=== PATIENT | male | born 1960 | race Caucasian/White ===

== ENCOUNTER 2017-08-09 11:07 | Day surgery (SDC) | payer BC ==
[~2017-08-09 11:07] MED LIST: ACETAMINOPHEN 500 MG TABLET PO PRN; HYDROmorphone HCL 2 MG/ML VIAL IV PRN; MAG HYDROX/ALUMINUM HYD/SIMETH 30 ML UDC PO PRN; MAGNESIUM HYDROXIDE 30 ML UDC PO PRN; ONDANSETRON HCL/PF 2 MG/ML VIAL IV PRN; PROMETHAZINE HCL 25 MG in DEXTROSE 5 % IN WATER 50 ML IV PRN; RINGER'S SOLUTION,LACTATED 1,000 ML IV PRN; ROPIVACAINE HCL/PF 40 MG in NORMAL SALINE 16 ML IJ PRN; ZOLPIDEM TARTRATE 5 MG TABLET PO PRN; ceFAZolin SODIUM 1 GM VIAL IV PRN; diphenhydrAMINE HCL 50 MG/ML VIAL IV PRN; oxyCODONE HCL/ACETAMINOPHEN 1 TAB TABLET PO PRN
[2017-08-09] MEDS ORDERED: BUPIVACAINE HCL/EPINEPHRINE 50 ML VIAL IJ ONE (12:20)
--- NOTE | 2017-08-09 12:50 | POSTOP NO ---
Date of Surgery: 08/09/17 Patient Tolerated the Procedure: Well Post Operative Diagnosis/Procedures: Denture Laboratory Technician: Rufus Nguyễn PA-C Post-operative Diagnosis: Right medial meniscus tear with loose bodies Finding: Above Procedure: Right knee arthroscopy partial medial meniscectomy with removal of loose bodies Estimated Blood Loss: Minimal Specimens: None
--- NOTE | 2017-08-09 12:53 | OR ---
Operative Report - Dictated Report Narrative: Date: 08/09/2017 Physician: Jose Lewis M.D. Hogshead Hand: Rufus Nguyễn PA-C Preoperative diagnosis: Right Knee medial meniscus tear Postoperative diagnosis: Right Knee medial meniscus tear , loose bodies Procedure: Right knee arthroscopy with partial medial meniscectomy, removal of loose bodies Anesthesia: General Plus local Complications: None Estimated blood loss: Minimal Tourniquet time: None Specimens: None Retained implants: None Drains: None Indications: Mr. Spence Is a 56 year-old gentleman who has been followed in my clinic with complaints of knee pain consistent with suspected medial joint pathology. Physical exam and diagnostic imaging were consistent with these complaints and concern for medial meniscus pathology. Conservative measures have failed including, but not limited to, passage of time, activity modification, medications, and injections. The risks, benefits, and alternatives were discussed in clinic. The risks being , bleeding, infection, blood clots, nerve, tendon, ligament, blood vessel injury, persistent pain, arthrosis, need for additional procedures, and persistent symptoms. Consent was obtained in the clinic. Procedure: After marking the correct extremity in the preoperative holding area, a timeout was performed in the operating room. IV antibiotics consisting of and set were administered prior to the procedure. A well-padded tourniquet was applied to the operative upper thigh. The leg was prepped and draped in a standard sterile fashion. 0.5% Marcaine with epinephrine was infused into the projected portal sites as well as the intra-articular space. A nimo incision was made for inferior lateral portal. A blunt trocar and cannula was introduced into the knee. The suprapatellar pouch revealed small chondral loose bodies. The medial patella facet showed grade 2 change. The lateral patella facet showed grade 2 change. The trochlea showed grade 1 change. The medial gutter revealed small chondral loose bodies. The medial joint space was then entered utilizing a lateral post and valgus stress. A spinal needle was utilized for guidance into placement of an anterior medial portal. This was placed just superior to the medial meniscus ensuring that we could reach the posterior aspect of the medial joint space. A nimo incision was made in the site, and the probe was introduced to the knee. The medial joint space was examined, and the medial femoral condyle showed a focal area of grade 4 change approximately 1 cm as well as the remaining distal femur and grade 3 change. The medial tibial plateau showed grade 4 change in the most medial aspect that was approximately 2 x 3 cm. The medial meniscus had a complex tear at the junction of the posterior and middle thirds which extended close to the root and was flipping in and out. The notch was then examined, and the ACL was noted to be intact. The PCL was noted to be intact. The lateral joint space was then examined using a varus force in the figure 4 position. Lateral femoral condyle showed no arthrosis. Lateral tibial plateau showed grade 1 change. The lateral meniscus showed no appreciable tear. The lateral gutter showed small chondral loose bodies. Having identified the surgical pathology, a series of biters and regine were utilized in order to debride the posterior one half of the medial meniscus to a depth of approximately 50%. The root was intact. The anterior meniscus was unremarkable. The shaver was also utilized in order to remove all the small chondral loose bodies throughout the knee. Once it was felt that we adequately addressed the pathology, the knee was thoroughly irrigated. The fluid was evacuated ensuring that we have removed all meniscal, chondral, and any other loose bodies. A final evaluation of the joint showed no additional pathology. The fluid was then evacuated of the knee, and the trocar and camera were removed from the joint. The wounds were closed with interrupted nylon after placing 20 mL of 0.2% ropivacaine into the joint. Dressings consisting of Xeroform, 4 x 4, ABD, soft roll, and an Jose were applied. All sponge, needle, blade, and instrument counts were correct prior to closing the wounds. The patient was awoken and transferred to the postanesthesia care unit in stable condition.
[2017-08-09 14:34] VITALS: BP 141/78
[2017-08-09] MEDS ORDERED: SENNOSIDES/DOCUSATE SODIUM 1 TAB TABLET PO SCH (21:00)
== END 2017-08-09 11:08 | disposition home or self-care (01) ==
LOC: AMB 11:07
PROVIDERS: ATTEND Orthopaedic Surgery
PROC: 0SBC4ZZ Excision of Right Knee Joint, Percutaneous Endoscopic Approach (ICD-10-PCS; principal; 2017-08-09)
DX: M23.221 Derangement of posterior horn of medial meniscus due to old tear or injury, right knee (principal); E11.9 Type 2 diabetes mellitus without complications; I10 Essential (primary) hypertension; E78.5 Hyperlipidemia, unspecified; G47.33 Obstructive sleep apnea (adult) (pediatric); I34.0 Nonrheumatic mitral (valve) insufficiency; G25.81 Restless legs syndrome; Z72.0 Tobacco use; Z68.36 Body mass index [BMI] 36.0-36.9, adult

== ENCOUNTER 2018-07-13 06:12 | Inpatient (IN) ==
[~2018-07-13 06:12] MED LIST changes: -ACETAMINOPHEN 500 MG TABLET PO PRN; -HYDROmorphone HCL 2 MG/ML VIAL IV PRN; -MAG HYDROX/ALUMINUM HYD/SIMETH 30 ML UDC PO PRN; -MAGNESIUM HYDROXIDE 30 ML UDC PO PRN; +MORPHINE SULFATE 15 MG TABLET.SA PO PRN; -ONDANSETRON HCL/PF 2 MG/ML VIAL IV PRN; -PROMETHAZINE HCL 25 MG in DEXTROSE 5 % IN WATER 50 ML IV PRN; -RINGER'S SOLUTION,LACTATED 1,000 ML IV PRN; +ROPIVACAINE HCL/PF 100 MG, EPINEPHrine 0.2 MG, KETOROLAC TROMETHAMINE 30 MG in NORMAL S... IJ PRN; -ROPIVACAINE HCL/PF 40 MG in NORMAL SALINE 16 ML IJ PRN; +TRANEXAMIC ACID 1,000 MG in NORMAL SALINE 100 ML IV PRN; -ZOLPIDEM TARTRATE 5 MG TABLET PO PRN; -diphenhydrAMINE HCL 50 MG/ML VIAL IV PRN; -oxyCODONE HCL/ACETAMINOPHEN 1 TAB TABLET PO PRN
--- NOTE | 2018-07-13 07:13 | ANES ---
Anesthesia Pre Procedure Eval Vitals/Labs: Last Vital Signs Temp 36.6 C 07/13/18 06:30 Pulse 82 07/13/18 06:30 Resp 18 07/13/18 06:30 BP 155/76 H 07/13/18 06:30 Pulse Ox 98 07/13/18 06:30 HOME MEDICATIONS Aspirin [Aspirin Enteric Coated] 81 mg PO DAILY 08/01/17 [Last Taken 07/08/18] Fenofibrate 160 mg PO DAILY 08/01/17 [Last Taken 07/12/18] Glucagon,Human Recombinant [Glucagen] 1 mg IJ ONCE PRN 08/01/17 [Last Taken Unknown] Omeprazole 20 mg PO DAILY 08/01/17 [Last Taken 07/12/18] clonazePAM [Klonopin] 0.5 mg PO DAILY PRN 08/01/17 [Last Taken 07/12/18] glipiZIDE [Glucotrol] 10 mg PO BIDAC 08/01/17 [Last Taken 07/12/18] tiZANidine HCL [Zanaflex] 2 mg PO DAILY PRN 08/01/17 [Last Taken Unknown] calcipotriene 0.005 % topical cream 1 applic TP BID PRN 04/25/18 [Last Taken Unknown] metformin 1,000 mg tablet 1,000 mg PO BIDWM tab 04/25/18 [Last Taken 07/12/18] simvastatin 80 mg tablet 80 mg PO DAILY tab 04/25/18 [Last Taken 07/12/18] desonide 0.05 % topical ointment 1 applic TP BID PRN 06/28/18 [Last Taken Unknown] insulin detemir (U-100) 100 unit/mL (3 mL) subcutaneous pen 58 unit SUBCUT HS ml 06/28/18 [Last Taken 07/12/18] naproxen 250 mg tablet 250 mg PO QAM PRN 06/28/18 [Last Taken 06/29/18] ropinirole 0.5 mg tablet 1 tab PO DAILY #90 tab 06/28/18 [Last Taken 07/12/18] tramadol 50 mg tablet See Rx Instructions PO .COMPLEX #60 tab 06/28/18 [Last Taken 07/12/18] Losartan Potassium 100 mg PO DAILY 07/11/18 [Last Taken 07/13/18] Allergies/Adverse Reactions: Allergies Allergy/AdvReac Type Severity Reaction Status Date / Time morphine AdvReac Mild Headache Verified 07/13/18 06:26 - Planned Procedure Planned Procedure: Right Arthroplasty Total Knee Medication List Reviewed:: Yes Medical History (Last Reviewed 07/13/18 @ 07:04 by Daniel Aparicio CRNA) Headache Onset Date: 02/14/12 Hyperlipidemia Onset Date: 2004 Hypertension Onset Date: 2004 Left buttock pain Onset Date: 12/11/14winter Lung nodule Onset Date: Unknown Medial meniscus tear Onset Date: 08/09/17 partial Mitral regurgitation Onset Date: 10/13/16 trivial mitral regurgitation, EF 65-70%, normal Echo, cardiovascular medicine, [place], Dr. Khan 10/07/16 NASREEN (obstructive sleep apnea) Onset Date: 02/14/12 Psoriasis Onset Date: 09/08/16 RLS (restless legs syndrome) Onset Date: 04/27/17 12/11/2014, 04/27/17 Rash of face Onset Date: 09/08/16 Rhinitis, allergic Onset Date: 09/08/16 Right knee DJD Onset Date: Unknown Right knee pain Onset Date: 03/07/17 Type 2 diabetes mellitus Onset Date: 2008 Surgical History (Last Reviewed 07/13/18 @ 07:09 by Daniel Aparicio CRNA) History of appendectomy Onset Date: 1997 History of arthroscopic knee surgery Onset Date: 08/09/17 right- see op report PMM, rem loose bodies Dr. Sultana right- arthroscopy ACL tear but not repaired, Dr. Aguilar- 1989' History of carpal tunnel release Onset Date: 2000 History of cholecystectomy Onset Date: Unknown feb or 2013 History of colonoscopy Onset Date: 2009 [facility] repeat 10 years History of eye surgery Onset Date: 1964 excision skin lesion Onset Date: Unknown hemorrhoid surgery Onset Date: Unknown Family History (Last Reviewed 07/13/18 @ 07:09 by Daniel Aparicio CRNA) Mother Medical history unknown Brother Alive and well Sister Medical history unknown Father , age 72 Cancer lung - Family Anesthesia History Family History:: no untoward family reactions to anesthesia, no familial bleeding tendencies, no family history of clotting disorders, no family history of premature - Airway/Neck/Teeth Within Normal Limits:: Yes Teeth Condition: intact Neck Exam: full range of motion Mallampatti Score: 3 Thyromental (T-M) distance: > 6 cm Mandibulo Hyoid distance: > 3 cm - Respiratory Smoking Status: Never smoker Sleep Apnea currently treated: Yes Sleep Apnea by current assessment: Yes Discussed Risks/Treatment of NASREEN: Yes - Cardiovascular Cardiac History: hyperlipidemia Tolerate Activity: Fair Heart Sounds: S1 & S2, Regular - Anesthesia Assessment and Plan ASA Class: PS, III Anesthesia Type Plan: Block - For post op pain relief, Spinal
[2018-07-13] MEDS: RINGER'S SOLUTION,LACTATED 1,000 ML IV PRN ×4 (07:24→21:58)
[2018-07-13] MEDS ORDERED: MAGNESIUM HYDROXIDE 30 ML UDC PO PRN (09:33)
[2018-07-13] MEDS ORDERED: MAG HYDROX/ALUMINUM HYD/SIMETH 30 ML UDC PO PRN (09:33)
[2018-07-13] MEDS ORDERED: ACETAMINOPHEN 500 MG TABLET PO PRN (09:33)
[2018-07-13] MEDS ORDERED: ZOLPIDEM TARTRATE 5 MG TABLET PO PRN (09:33)
[2018-07-13] MEDS ORDERED: ONDANSETRON HCL/PF 2 MG/ML VIAL IV PRN (09:33)
[2018-07-13] MEDS ORDERED: HYDROmorphone HCL 1 MG/ML DISP.SYRIN IV PRN (09:33)
[2018-07-13] MEDS ORDERED: diphenhydrAMINE HCL 50 MG/ML VIAL IV PRN (09:33)
[2018-07-13] MEDS ORDERED: tiZANidine HCL 4 MG TABLET PO PRN (09:34)
[2018-07-13] MEDS ORDERED: CALCIPOTRIENE TP PRN (09:34)
[2018-07-13] MEDS ORDERED: GLUCAGON,HUMAN RECOMBINANT 1 MG VIAL IJ PRN (09:34)
[2018-07-13] MEDS ORDERED: clonazePAM 0.5 MG TABLET PO PRN (09:34)
[2018-07-13] MEDS ORDERED: DESONIDE APPL TP PRN (09:34)
--- NOTE | 2018-07-13 09:37 | OR ---
Operative Report - Dictated Report Narrative: Date: 07/13/2018 Preoperative diagnosis: Right Knee degenerative joint disease. Postoperative diagnosis: Right Knee degenerative joint disease. Procedure: Right Total knee arthroplasty. Surgeon: Jose Lewis M.D. Certified Low Vision Therapist: Rufus Nguyễn PA-C (provided and essential set of skilled, educated hands that assisted with transfer, positioning, prepping, draping, manipulation, retraction, placement of jigs, injection, insertion of implants, irrigation, closure wounds, and dressings all of which could not be performed by the available surgical crew) Anesthesia: Spinal with regional block and local periarticular joint injection. Complications: None Specimens: Bone for disposal. Estimated blood loss: Minimal. Tourniquet time: 80 Minutes at 325 millimeters of mercury. Retained implants: Depuy Attune size 7 right lugged cemented posterior stabilized femoral compo nent. Size 7 fixed-bearing cemented tibial platform. 7 by 8 millimeter posterior stabilized cross-linked tibial insert. 41 millimeter medialized patella button. Indications: Mr. Spence is a 57-year-old gentleman who has had long-standing right knee pain and arthrosis. This patient was followed in my clinic for period of time with significant complaints of right knee pain consistent with a rthritic changes. He had failed conservative measures including, but not limited to, activity modification, passage of time, medications, and other conservative measures. Patient wished to proceed with surgical treatment. The risks, benefits, and alternatives were discussed in clinic. The risks of , blood clots, bleeding, infection, nerve/tendon blood vessel/ injury, malposition of components, intraoperative fracture, postoperative limited range of motion, persistent pain, failure of components, and need for additional procedures. Patient wished to proceed consent was obtained after answering all questions. Procedure: After marking the correct extremity on the floor, the patient was taken to the operating room. A timeout was performed. IV antibiotics consisting of Ancef were administered prior to the procedure. A regional followed by spinal anesthetic was induced by anesthesia, per my request, on the operative table with all bony prominences well-padded. Núñez catheter was placed, and a bump was placed under the operative side buttock. SCDs and GILDARDO hose were utilized on the nonoperative leg. A well-padded tourniquet was applied to the operative thigh. The operative leg was then pre-scrubbed with alcohol, prepped, and draped in a standard sterile fashion. After exsanguinating the extremity with an Esmarch bandage, the tourniquet was inflated. After marking out the anterior knee for standard incision centered over the patella, the skin was incised and dissected down to the joint retinaculum. The joint retinaculum was marked out as well as the horizontal axis of the patella, and a standard medial parapatellar arthrotomy was then made. The most proximal aspect of the quadriceps tendon and the patella tendon insertion were protected from release. A partial synovectomy was performed as well as a resection of the infrapatellar fat pad. The distal femoral fat pad proximal to the trochlea was also resected using cautery. The soft tissues were elevated off the medial aspect of the proximal tibia using a Corrales elevator ensuring that we did not transect the medial collateral ligament. Upon initial evaluation range of motion was approximately 0 degrees to 130 degrees of flexion. There were signs of advanced arthrosis in the medial and lateral greater than patellofemoral joint spaces. There were large marginal osteophytes which were removed with a rongeur. The knee was hyperflexed and the patella was tucked laterally. Protecting the surrounding soft tissues with Homans, an entry drill was placed down the femoral canal using Whitesides line for guidance into the entry point. The intramedullary femoral alignment pia was utilized in order to cut the distal femur in 5 degrees of valgus resecting 10 millimeters of bone. Next the distal femur was sized to a size 7. A posterior referencing guide was utilized to place the distal femoral cutting block in 3 degrees of external rotation. This was pinned into place. The rotation was confirmed both visually and based on anatomic landmarks. The 4 in 1 cutting jig of the appropriate size was utilized in order to make all bony cuts. The angle wing was used to ensure no notching. Retractors were utilized in order to protect surrounding soft tissues. This cut did not result in any excessive notching. We then cut the box centered over the distal femur. This allowed for resection of the anterior and posterior cruciate ligaments. I then turned my attention to the preparation of the tibia. Using an extra medullary tibial alignment pia, 3 millimeters of bone was resected off the medial articular surface. This was made perpendicular to the mechanical axis of the joint with the alignment pia centered over the ankle mortise. The alignment pia was checked and was noted to be parallel to the mechanical axis, centered over the medial one third of the tibial tubercle, paralleling the anterior surface of the tibia. We then turned our attention to the remaining meniscus and soft tissues. These were removed while protecting the surrounding ligaments and soft tissues. The marginal osteophytes off the anterior, posterior, medial, lateral aspects of the femur and tibia were removed. The tibia was sized out to a size 7. Next the tibia was drilled and punched in an externally rotated position. Next the trial femur and a series of tibial inserts were utilized in order to allow for full extension and maximal flexion. It was found that a 8 millimeter insert gave the best range of motion and stability at multiple flexion points as well as at full extension there was less than 2 mm of gapping both medially and laterally. There is minimal anterior translation with the knee at 90 degrees of flexion and no signs of being able to dislocate the knee. The patella was then prepared. The initial thickness was 26 millimeters. This was reamed down to 16 millimeters parallel to the anterior surface of the patella. It was sized out to a size 41 medialized patella button. This was then drilled and trialed. Without any medial restraint the patella tracked appropriately and did not sublux or dislocate. At this point, it was felt these were the appropriate sized implants, and all trials were removed. The standard periarticular joint injection consisting of ropivacaine, Toradol, and epinephrine were injected into the periarticular joint tissues. The bony surfaces were thoroughly irrigated with a pulsatile-suction saline irrigation device. A bone plug from the prior resected anterior chamfer cut was placed into the drill hole at the distal femur. The bony surfaces were then dried in preparation for placement of the implants. The cement was vacuum mixed per the home health care respiratory therapist's instructions. The cement was placed on the dry bony surfaces and posterior aspect of the implants. The implants were impacted into place, removing all extruded cement. At this point anesthesia administered tranexamic acid per protocol intravenously. The knee was placed in extension with axial loading with the trial insert while the cement cured. Once the cement cured, all remaining extruded cement was removed. The knee was placed through a range of motion with the trial insert to ensure appropriate range of motion and stability. Final range of motion was approximately 0 to 130 degrees. The knee was again thoroughly irrigated with pulsatile saline lavage. The final polyethylene insert was then impacted into place ensuring no retained soft tissues. The remaining periarticular joint injection was injected. A medium Hemovac drain was placed exiting superior laterally. The knee was then placed over a triangle and the arthrotomy was closed with interrupted #1 Vicryl after thoroughly irrigating the joint. The deep and subcutaneous tissues were closed with interrupted 0 and 3-0 Vicryl respectively. Skin was closed with a running subcutaneous 3-0 Monocryl and Prineo Dermabond dressing. 4 x 4's, Sof-Rol, and a full leg Jose wrap were applied. All sponge, needle, blade, and instrument counts were correct prior to closing the wounds. Postoperative condition: The patient was awoken and transferred to the postanesthesia care unit in stable condition. Plan is to be admitted to the inpatient medical/surgical floor postoperatively for 24 hours of IV antibiotics, physical therapy, occupational therapy, and medical comanagement. Patient will be weightbearing as tolerated with range of motion as tolerated. DVT prophylaxis will be with SCDs, GILDARDO hose, and pharmacological anticoagulation. Anticipated hospital stay is approximately 1-3 days.
--- NOTE | 2018-07-13 09:52 | ANES ---
Anesthesia Procedure Note Procedure Note: ANESTHESIA PROCEDURE NOTE Date of Procedure: 07/13/2018 Time of procedure: 7:45 AM. Performed by: Daniel Aparicio CRNA, MSN [employer] Prof[employer]als: Lisa Luevano RN. Preprocedure diagnosis: Post right total knee arthroplasty. Post procedure diagnosis: Same. Procedure: Right Adductor Canal Block. Indications: Post great total knee arthroplasty pain relief. Findings: See below. Details of the procedure: The patient was brought to OR for and placed in supine position. The patient's right femoral area to the knee was prepped with chlorhexidine and using ultrasound guidance the right femoral artery wasidentified at approximately the proximal one third femur. Under ultrasound guidance the saphenous nerve was approached with visualization of a 4 inch shielded block needle approaching the adductor canal just under the sartorius muscle. Once saphenous nerve was identified with proximity to the needle tip, the saphenous nerve was surrounded with 20 mL bupivacaine 0.25% with 1-200,000 epinephrine. Please see radiology/ultrasound report for details and retained images of the procedure. EBL: 0 Fluids: N/A. Specimen: N/A. Post procedure condition: The patient tolerated the procedure well. No complications were noted. Thank you for this consultation. Daniel Aparicio CRNA, MSN
--- NOTE | 2018-07-13 09:53 | ANES ---
Post Anesthesia Discharge - Transfer of Care Transfer of Care handoff given to nurse: Yes - Discharge from PACU Discharge from PACU when meets criteria: Yes - Comfortable in PACU
[2018-07-13] MEDS ORDERED: DESONIDE 0.05% TP PRN (10:15)
[2018-07-13] MEDS: ceFAZolin SODIUM 1 GM in DEXTROSE 5 % IN WATER 100 ML IV SCH ×6 (10:42→22:42)
[2018-07-13] MEDS: KETOROLAC TROMETHAMINE 15 MG/ML VIAL IV SCH ×3 (10:42→22:43)
--- NOTE | 2018-07-13 11:38 | ANES ---
Post Anesthesia Assessment - Vital Signs Vitals: Last Vital Signs Temp 36.7 C 07/13/18 09:50 Pulse 71 07/13/18 10:10 Resp 12 07/13/18 10:10 BP 125/66 07/13/18 10:10 Pulse Ox 98 07/13/18 10:10 Airway Patency: Normal - Mental Status Level Of Consciousness: Awake, Alert, Appropriate - Pain Level Pain Score: 0 - N/V Assessment Nausea/Vomiting Presence: None Dehydration:: No
[2018-07-13] MEDS: oxyCODONE HCL/ACETAMINOPHEN 1 TAB TABLET PO PRN ×3 (14:22→22:50)
[2018-07-13] MEDS: glipiZIDE 10 MG TABLET PO SCH (16:44)
[2018-07-13] MEDS ORDERED: rOPINIRole HCL 0.5 MG TABLET PO SCH (17:30)
[2018-07-13] MEDS: MORPHINE SULFATE 15 MG TABLET.SA PO SCH (20:18)
[2018-07-13] MEDS ORDERED: SENNOSIDES/DOCUSATE SODIUM 1 TAB TABLET PO SCH (21:00)
[2018-07-13] MEDS ORDERED: SIMVASTATIN 40 MG TABLET PO SCH (21:00)
[2018-07-13] MEDS ORDERED: INSULIN DETEMIR 100 UNITS/ML VIAL SC SCH (21:00)
[2018-07-14] MEDS: oxyCODONE HCL/ACETAMINOPHEN 1 TAB TABLET PO PRN ×3 (03:18→13:02)
[2018-07-14] MEDS: KETOROLAC TROMETHAMINE 15 MG/ML VIAL IV SCH ×2 (05:09→10:30)
[2018-07-14 06:22] LABS: Hemoglobin 12.1 gm/dL (13.5-18.0); Mean Cell Volume 89.5 fl (78-100); Mean Corpuscular Hemoglobin 30.9 pg (27-31); Mean Corpuscular Hgb Conc 34.6 g/dl (32-36); Mean Platelet Volume 9.7 fl (8-11.3); Platelet Count 188 K/mm3 (150-450); Red Blood Count 3.91 M/mm3 (4.7-6.0); Red Cell Distribution Width 12.3 % (11.5-14.0); White Blood Count 7.2 K/mm3 (4.0-10.5)
[2018-07-14 06:35] LABS: Anion Gap 10.8 mmol/L (6.8-13.8); BUN/Creatinine Ratio 10.7 (9.0-21.6); Calcium * 8.9 mg/dL (7.9-10.9); Carbon Dioxide 26.4 mmol/L (24-32.6); Estimated Creat Clear 72.2; Potassium 4.2 mmol/L (3.4-4.6)
[2018-07-14] MEDS: glipiZIDE 10 MG TABLET PO SCH (06:35)
[2018-07-14] MEDS ORDERED: PANTOPRAZOLE SODIUM 20 MG TABLET.DR PO SCH (07:00)
[2018-07-14] MEDS ORDERED: ENOXAPARIN SODIUM 40 MG/0.4 ML SYRG SC SCH (08:33)
[2018-07-14] MEDS ORDERED: LOSARTAN POTASSIUM 50 MG TABLET PO SCH (09:00)
[2018-07-14] MEDS ORDERED: FENOFIBRATE,MICRONIZED 134 MG CAPSULE PO SCH (09:00)
[2018-07-14] MEDS: MORPHINE SULFATE 15 MG TABLET.SA PO SCH (09:26)
--- NOTE | 2018-07-14 10:31 | DS ---
(1) DM type 2 (diabetes mellitus, type 2) Problem: Chronic Qualifiers: Diabetes mellitus retirement insulin use: with retirement use (2) NASREEN (obstructive sleep apnea) Problem: Chronic (3) HTN (hypertension) Problem: Chronic (4) Hyperlipemia Problem: Chronic (5) RLS (restless legs syndrome) Problem: Chronic (6) Status post total right knee replacement Problem: Acute (7) Acute blood loss anemia Problem: Acute (8) GERD (gastroesophageal reflux disease) Problem: Chronic (9) Psoriasis Problem: Chronic Description of Stay: Mr. Spence was admitted to the floor after undergoing right total knee arthroplasty. Tolerated this well. Was admitted to the floor postoperatively for 24 hours of IV antibiotics, pain control, medical comanagement, and occupa tional and physical therapy. OT and PT were consulted to assist with activities of daily living and ambulation. Was made weightbearing as tolerated with range of motion as tolerated. Pain was initially controlled with IV regimen. This was transitioned to oral once tolerating a by mouth intake. Was resumed on home diet and medications. Had a Núñez catheter inserted and the operating room whic h was discontinued on postoperative day 1. A drain was placed intraoperatively into the knee which was discontinued on postoperative day 1. Lovenox SCD and GILDARDO hose were utilized for DVT prophylaxis. Vital signs remained stable to the hospital course. Serial labs were obtained which showed a final hemoglobin of 12.1 grams. BMP was reviewed and was stable. Physical examination throughout the hospital course showed an extremity that had sensation that was intact to light touch, palpable pulses, a benign wound, motor intact to the toes, ankle, and knee. Knee range of motion was approximately 5 degrees to 60 degrees. Once an oral pain regimen was tolerated and physical therapy goals were met, it was felt that they were stable for discharge to home. Instructions: Continue with weightbearing as tolerated and range of motion as tolerated. It is okay to shower and get the wound wet as long as there is no drainage from the wound. Do not bathe or soak the wound. If there is any drainage from the wound keep the wound clean and dry and cover with dry gauze and tape. Change every 2- 3 days as needed if there is any drainage. Cover wound while showering if there is any drainage. Continue with physical therapy. Resume home diet. Report any fever over 101.5 Fahrenheit, uncontrolled pain, increased drainage, foul odor of drainage, new or increased calf pain or shortness of breath, or any other significant complaints. A 325mg dialy aspirin will be started after finishing anticoagulation if not allergic. Continue with GILDARDO hose on the operative extremity until instructed otherwise. No driving until instructed otherwise. Follow up in approximately 10-14 days. Procedures Performed: see notes below List Procedures: Right total knee arthroplasty Results and Findings: Lab Pending Results 07/14/18 06:15: WBC 7.2, RBC 3.91 L, Hgb 12.1 L, Hct 35.0 L, MCV 89.5, MCH 30.9, MCHC 34.6, RDW 12.3, Plt Count 188, MPV 9.7 07/14/18 06:15: Sodium 139, Plasma Sodium 140, Potassium 4.2, Chloride 106, Carbon Dioxide 26.4, Anion Gap 10.8, BUN 13, Creatinine 1.21, Est GFR (Non-Af Amer) 65, BUN/Creatinine Ratio 10.7, Random Glucose 182 H, Calcium 8.9 Discharge Location: Home Disposition: Home self-care Condition: Good Discharge Activity: Activity as tolerated, Weight bearing Discharge Diet: Consistent carbs Referrals: Álvaro Cameron MD [Primary Care Provider] - Additional Patient Instructions (free text): Follow up Physical Therapy appointment at [facility] outpatient rehab on Jul.16 at 2:30pm. Please fax order and demographics to [facility] rehab to fax # [phone]. Follow up Orhopedic Dr Lewis appointment on at 1:00pm. Prescriptions (Any new or edited meds): Enoxaparin Sodium [Lovenox] 40 mg SC Q24H #7 disp.syrin Morphine Sulfate [Ms Contin] 15 mg PO Q12H #14 tablet.sa oxyCODONE HCL/ACETAMINOPHEN [Percocet 5 MG/325 MG] 2 tab PO Q4H PRN #60 tab PRN Reason: Moderate Pain (Pain Scale 4-6) Sennosides/Docusate Sodium [Senokot-S] 2 tab PO HS #60 tablet Complete Home Medications List: Complete Home Medication List: Aspirin [Aspirin Enteric Coated] 81 mg PO DAILY 08/01/17 Fenofibrate 160 mg PO DAILY 08/01/17 Glucagon,Human Recombinant [Glucagen] 1 mg IJ ONCE PRN 08/01/17 Omeprazole 20 mg PO DAILY 08/01/17 clonazePAM [Klonopin] 0.5 mg PO DAILY PRN 08/01/17 glipiZIDE [Glucotrol] 10 mg PO BIDAC 08/01/17 tiZANidine HCL [Zanaflex] 2 mg PO DAILY PRN 08/01/17 calcipotriene 0.005 % topical cream 1 applic TP BID PRN 04/25/18 metformin 1,000 mg tablet 1,000 mg PO BIDWM tab 04/25/18 simvastatin 80 mg tablet 80 mg PO HS tab 04/25/18 desonide 0.05 % topical ointment 1 applic TP BID PRN 06/28/18 insulin detemir (U-100) 100 unit/mL (3 mL) subcutaneous pen 58 unit SUBCUT HS ml 06/28/18 ropinirole 0.5 mg tablet 1 tab PO DAILY #90 tab 06/28/18 Losartan Potassium 100 mg PO DAILY 07/11/18 Dulaglutide [Trulicity] 1.5 mg SQ WE 07/13/18 Enoxaparin Sodium [Lovenox] 40 mg SC Q24H #7 disp.syrin 07/14/18 Morphine Sulfate [Ms Contin] 15 mg PO Q12H #14 tablet.sa 07/14/18 Sennosides/Docusate Sodium [Senokot-S] 2 tab PO HS #60 tablet 07/14/18 oxyCODONE HCL/ACETAMINOPHEN [Percocet 5 MG/325 MG] 2 tab PO Q4H PRN #60 tab 07/14/18 Amb Orders for Discharge: PT Evaluation and Treatment* Facility: [facility], Location: Rehabilitation Services
[2018-07-14 13:35] VITALS: BP 143/76
== END 2018-07-14 13:44 | disposition home or self-care (01) | DRG 470 ==
LOC: MS 06:12 → EDSTATUS 08:00
PROVIDERS: ADMIT Orthopaedic Surgery; ATTEND Orthopaedic Surgery
CPT/HCPCS: 36415; 73560; 80048; 85027; 97116; 97161; 97165; 97530